=== PATIENT | male | born 1990 | race Caucasian/White ===

== ENCOUNTER 2023-08-05 23:19 | Emergency (ER) | payer MEDICAID ==
[~2023-08-05] VITALS: Ht 167.6 cm; Wt 95.3 kg
[2023-08-05 23:50] VITALS: BP_SYST 140; PULSE 85; RESP 19; O2SAT 97
[2023-08-06] MEDS ORDERED: KETOROLAC TROMETHAMINE 60 MG/2 ML VIAL IM ONE (00:15)
[2023-08-06] MEDS ORDERED: MORPHINE 4 MG INJ. 4 MG/ML VIAL IM ONE (00:15)
[2023-08-06] MEDS ORDERED: NAPR-1172 PO (01:14)
[2023-08-06 01:20] VITALS: BP_SYST 138; PULSE 83; RESP 18; TEMP 98.2; O2SAT 97
== END 2023-08-06 01:20 | disposition home or self-care (01) ==
LOC: SED 23:19
DX: S33.5XXA Sprain of ligaments of lumbar spine, initial encounter (principal); Z79.899 Other long term (current) drug therapy; X50.0XXA Overexertion from strenuous movement or load, initial encounter; Y93.89 Activity, other specified; Y92.89 Other specified places as the place of occurrence of the external cause; Y99.8 Other external cause status
CPT/HCPCS: 99284; 72100; 96372; J1885; J2270